=== PATIENT | female | born 1930 | race Caucasian/White ===

== ENCOUNTER 2020-05-24 20:14 | Inpatient (IN) | payer MEDICARE, BC ==
[2020-05-24 20:30] LABS: Glucose,Whole Blood 234 mg/dL (75-99)
--- NOTE | 2020-05-24 20:33 | ED ---
General Adult HPI - General Stated complaint: Confusion Time Seen by Provider: 05/24/20 20:16 - History of Present Illness Initial comments: Dictation was produced using [employer] dictation software. please excuse any grammatical, word or spelling errors. 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 She has been at [facility] for almost 3-4 days. Today she was found to be confused and was caught drinking from the spell of a hand radio engineering teacher bottle. According to EMS she has been confused the whole time she's been at [facility]. Her normal baseline mental status is usually interactive with meaningful conversation. Patient is a poor historian at this time. Patient complains of bilateral calf pain. She is allegedly at [facility] for hypokalemia. Patient denies any dyspnea. The ROS documented in this emergency department record has been reviewed and confirmed by me. Those systems with pertinent positive or negative responses h ave been documented in the HPI. All other systems are other negative and/or noncontributory. PHYSICAL EXAM: General Impression: Alert and oriented x2/4, not in acute distress HEENT: Normocephalic atraumatic, extra-ocular movements intact, pupils equal and reactive to light bilaterally, mucous membranes moist. 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 Vital signs upon arrival are within acceptable limits. patient has any medical complaints patient denies chest pain or shortness of breath. However, she is not a reliable historian. [facility] transfer documentation was reviewed. Patient is a DO NOT RESUSCITATE. Reports that patient is bed confined. Medical problems list shows congestive heart failure, hypertension, dysphasia, hypothyroidism, dyslipidemia. She also has long-term use of anticoagulants. Medications reviewed. Patient takes digoxin, statin, aspirin, vitamin D, isosorbide, levothyroxine, Norvasc, and requests. Laboratory evaluation obtained. Leukocytosis of 26.5 hemoglobin 9.4. There is no old labs in the EMR for comparison. No osmolar gap. No anion gap Coag panel is unremarkable. Metabolic panel shows sodium 132, potassium of 5.6. BUN of 69 with a creatinine of 0.95. Glucose of 144. AST 30, troponin of 0.052. Patient has history of CHF. This is likely troponin leak. Urinalysis shows 182 white blood cells. Computed tomography scan of the brain and x-ray shows no acute processes. This point there is concerns of UTI with mental status changes. She is not tachypneic or febrile or showing any other signs of organ dysfunction. Patient be admitted for altered mental status. She is given ceftriaxone. Patient will be admitted to Dr. Santos service. EKG interpretation: Ventricular rate 107, A. fib with RVR, QRS 146, QTC 448. No CO prolongation, no QTC prolongation, no ST or T-wave changes noted. No old EKG for comparison. Right bundle branch block - Related Data Home Medications Medication Instructions Recorded Confirmed Acetaminophen Tab [Tylenol Tab] 1,000 mg PO Q4H PRN 05/24/20 05/24/20 Acetaminophen-Codeine 300-30mg 1 tab PO TID PRN 05/24/20 05/24/20 [Tylenol w/codeine #3] Apixaban [Eliquis] 2.5 mg PO BID@899,209905/24/20 05/24/20 Aspirin 81 mg PO DAILY@89905/24/20 05/24/20 Atorvastatin [Lipitor] 10 mg PO HS@209905/24/20 05/24/20 Calcium Carbonate/Vitamin D3 1 tab PO BID@899,209905/24/20 05/24/20 [Calcium 600-D3 20Mcg(800 Unit)] Cholecalciferol [Vitamin D3 (25 1,000 unit PO DAILY@89905/24/20 05/24/20 Mcg = 1000 Iu)] Digoxin [Lanoxin] 125 mcg PO DAILY@59905/24/20 05/24/20 Docusate [Colace] 100 mg PO BID PRN 05/24/20 05/24/20 Fish Oil(Unknown Dose) 1 cap PO BID@0900,209905/24/20 05/24/20 Furosemide [Lasix] 40 mg PO BID@0600,1400 05/24/20 05/24/20 Glucosamine-Chondr 500-400Mg 1 tab PO BID@0900,209905/24/20 05/24/20 Iron Polysaccharide Complex 150 mg PO DAILY@1700 05/24/20 05/24/20 [Polysaccharide Iron] Isosorbide Mononitrate ER [Imdur] 30 mg PO DAILY@89905/24/20 05/24/20 Lactobacillus Rhamnosus GG 1 cap PO DAILY@89905/24/20 05/24/20 [Culturelle] Lactose-Reduced Food [Ensure Plus] 120 ml PO TID@0900,1300,209905/24/20 05/24/20 Levothyroxine Sodium [Synthroid] 50 mcg PO DAILY@59905/24/20 05/24/20 Melatonin 5 mg PO HS@209905/24/20 05/24/20 Metoprolol Tartrate [Lopressor] 50 mg PO BID@0900,209905/24/20 05/24/20 Multivitamins, Thera [Multivitamin 1 tab PO DAILY@89905/24/20 05/24/20 (formulary)] Nitroglycerin Sl Tabs [Nitrostat] 0.4 mg SL Q5M PRN 05/24/20 05/24/20 Potassium Chloride ER [K-Dur 20] 40 meq PO BID@0900,209905/24/20 05/24/20 amLODIPine [Norvasc] 5 mg PO DAILY@89905/24/20 05/24/20 Allergies Allergy/AdvReac Type Severity Reaction Status Date / Time cefaclor [From Ceclor] Allergy Unknown Verified 05/24/20 21:35 Review of Systems ROS Statement: Those systems with pertinent positive or pertinent negative responses have been documented in the HPI. ROS Other: All systems not noted in ROS Statement are negative. Course Vital Signs 05/24/20 20:27 Temperature 98.4 F Pulse Rate 98 Respiratory 16 Rate Blood Pressure 112/61 O2 Sat by Pulse 96 Oximetry Medical Decision Making - Lab Data Result diagrams: 05/24/20 20:41 05/24/20 20:41 Lab Results 05/24/20 05/24/20 05/24/20 Range/Units 20:29 20:41 20:41 WBC 26.5 H (3.8-10.6) k/uL RBC 3.12 L (3.80-5.40) m/uL Hgb 9.4 L (11.4-16.0) gm/dL Hct 29.1 L (34.0-46.0) % MCV 93.1 (80.0-100.0) fL MCH 30.0 (25.0-35.0) pg MCHC 32.2 (31.0-37.0) g/dL RDW 13.8 (11.5-15.5) % Plt Count 377 (150-450) k/uL PT 10.4 (9.0-12.0) sec INR 1.0 (<1.2) APTT 26.8 (22.0-30.0) sec Sodium (137-145) mmol/L Potassium (3.5-5.1) mmol/L Chloride (98-107) mmol/L Carbon Dioxide (22-30) mmol/L Anion Gap mmol/L BUN (7-17) mg/dL Creatinine (0.52-1.04) mg/dL Est GFR (CKD-EPI)AfAm (>60 ml/min/1.73 sqM) Est GFR (CKD-EPI)NonAf (>60 ml/min/1.73 sqM) Glucose (74-99) mg/dL POC Glucose (mg/dL) 234 H (75-99) mg/dL POC Glu Template Clerk ID Haydee Tong Osmolality (280-301) mosm/kg Plasma Lactic Acid Julian (0.7-2.0) mmol/L Calcium (8.4-10.2) mg/dL Magnesium (1.6-2.3) mg/dL Total Bilirubin (0.2-1.3) mg/dL AST (14-36) U/L ALT (4-34) U/L Alkaline Phosphatase (38-126) U/L Troponin I (0.000-0.034) ng/mL Total Protein (6.3-8.2) g/dL Albumin (3.5-5.0) g/dL Urine Color Urine Appearance (Clear) Urine pH (5.0-8.0) Ur Specific Fleming (1.001-1.035) Urine Protein (Negative) Urine Glucose (UA) (Negative) Urine Ketones (Negative) Urine Blood (Negative) Urine Nitrite (Negative) Urine Bilirubin (Negative) Urine Urobilinogen (<2.0) mg/dL Ur Leukocyte Esterase (Negative) Urine RBC (0-5) /hpf Urine WBC (0-5) /hpf Urine WBC Clumps (None) /hpf Urine Bacteria (None) /hpf 05/24/20 05/24/20 05/24/20 Range/Units 20:41 20:41 20:41 WBC (3.8-10.6) k/uL RBC (3.80-5.40) m/uL Hgb (11.4-16.0) gm/dL Hct (34.0-46.0) % MCV (80.0-100.0) fL MCH (25.0-35.0) pg MCHC (31.0-37.0) g/dL RDW (11.5-15.5) % Plt Count (150-450) k/uL PT (9.0-12.0) sec INR (<1.2) APTT (22.0-30.0) sec Sodium 132 L (137-145) mmol/L Potassium 5.6 H (3.5-5.1) mmol/L Chloride 93 L (98-107) mmol/L Carbon Dioxide 27 (22-30) mmol/L Anion Gap 12 mmol/L BUN 69 H (7-17) mg/dL Creatinine 0.95 (0.52-1.04) mg/dL Est GFR (CKD-EPI)AfAm 63 (>60 ml/min/1.73 sqM) Est GFR (CKD-EPI)NonAf 54 (>60 ml/min/1.73 sqM) Glucose 144 H (74-99) mg/dL POC Glucose (mg/dL) (75-99) mg/dL POC Glu Template Clerk ID Osmolality 298 (280-301) mosm/kg Plasma Lactic Acid Julian 1.2 (0.7-2.0) mmol/L Calcium 9.4 (8.4-10.2) mg/dL Magnesium 2.0 (1.6-2.3) mg/dL Total Bilirubin 0.5 (0.2-1.3) mg/dL AST 38 H (14-36) U/L ALT 21 (4-34) U/L Alkaline Phosphatase 123 (38-126) U/L Troponin I (0.000-0.034) ng/mL Total Protein 7.4 (6.3-8.2) g/dL Albumin 3.5 (3.5-5.0) g/dL Urine Color Light Yellow Urine Appearance Cloudy H (Clear) Urine pH 7.0 (5.0-8.0) Ur Specific Fleming 1.009 (1.001-1.035) Urine Protein 1+ H (Negative) Urine Glucose (UA) Negative (Negative) Urine Ketones Negative (Negative) Urine Blood Small H (Negative) Urine Nitrite Negative (Negative) Urine Bilirubin Negative (Negative) Urine Urobilinogen <2.0 (<2.0) mg/dL Ur Leukocyte Esterase Large H (Negative) Urine RBC 1 (0-5) /hpf Urine WBC >182 H (0-5) /hpf Urine WBC Clumps Many H (None) /hpf Urine Bacteria Moderate H (None) /hpf 05/24/20 Range/Units 20:41 WBC (3.8-10.6) k/uL RBC (3.80-5.40) m/uL Hgb (11.4-16.0) gm/dL Hct (34.0-46.0) % MCV (80.0-100.0) fL MCH (25.0-35.0) pg MCHC (31.0-37.0) g/dL RDW (11.5-15.5) % Plt Count (150-450) k/uL PT (9.0-12.0) sec INR (<1.2) APTT (22.0-30.0) sec Sodium (137-145) mmol/L Potassium (3.5-5.1) mmol/L Chloride (98-107) mmol/L Carbon Dioxide (22-30) mmol/L Anion Gap mmol/L BUN (7-17) mg/dL Creatinine (0.52-1.04) mg/dL Est GFR (CKD-EPI)AfAm (>60 ml/min/1.73 sqM) Est GFR (CKD-EPI)NonAf (>60 ml/min/1.73 sqM) Glucose (74-99) mg/dL POC Glucose (mg/dL) (75-99) mg/dL POC Glu Template Clerk ID Osmolality (280-301) mosm/kg Plasma Lactic Acid Julian (0.7-2.0) mmol/L Calcium (8.4-10.2) mg/dL Magnesium (1.6-2.3) mg/dL Total Bilirubin (0.2-1.3) mg/dL AST (14-36) U/L ALT (4-34) U/L Alkaline Phosphatase (38-126) U/L Troponin I 0.052 H* (0.000-0.034) ng/mL Total Protein (6.3-8.2) g/dL Albumin (3.5-5.0) g/dL Urine Color Urine Appearance (Clear) Urine pH (5.0-8.0) Ur Specific Fleming (1.001-1.035) Urine Protein (Negative) Urine Glucose (UA) (Negative) Urine Ketones (Negative) Urine Blood (Negative) Urine Nitrite (Negative) Urine Bilirubin (Negative) Urine Urobilinogen (<2.0) mg/dL Ur Leukocyte Esterase (Negative) Urine RBC (0-5) /hpf Urine WBC (0-5) /hpf Urine WBC Clumps (None) /hpf Urine Bacteria (None) /hpf Disposition Clinical Impression: Altered mental status Disposition: ADMITTED IP TO THIS [facility] Condition: Fair Referrals: Suresh Hardy MD [Primary Care Provider] - 1-2 days Decision Time: 21:51
[2020-05-24 21:12] LABS: Albumin 3.5 g/dL (3.5-5.0); Calcium 9.4 mg/dL (8.4-10.2); Potassium 5.6 mmol/L (3.5-5.1); Total Bilirubin 0.5 mg/dL (0.2-1.3); Total Protein 7.4 g/dL (6.3-8.2)
[2020-05-24] MEDS ORDERED: SODIUM CHLORIDE 0.9% 500 ML 500 ML IV STA (21:14)
[2020-05-24 21:17] LABS: Appearance,Urine Cloudy (Clear); Bacteria,Urine Moderate /hpf; Bilirubin,Urine Negative (Negative); Blood,Urine Small (Negative); Color,Urine Light Yellow; Glucose,Urine (UA) Negative (Negative); HCT 29.1 % (34.0-46.0); HGB 9.4 gm/dL (11.4-16.0); Ketones,Urine Negative (Negative); Leukocyte Esterase,Urine Large (Negative); MCHC 32.2 g/dL (31.0-37.0); MCV 93.1 fL (80.0-100.0); Mean Platelet Volume 7.2; Nitrite,Urine Negative (Negative); Platelet Count 377 k/uL (150-450); Protein,Urine 1+ (Negative); RBC 3.12 m/uL (3.80-5.40); RBC,Urine 1 /hpf (0-5); RDW 13.8 % (11.5-15.5); Specific Gravity,Urine 1.009 (1.001-1.035); Urobilinogen,Urine <2.0 mg/dL (<2.0); WBC 26.5 k/uL (3.8-10.6); WBC,Urine >182 /hpf (0-5)
--- NOTE | 2020-05-24 21:25 | XR ---
EXAMINATION TYPE: XR chest 1V DATE OF EXAM: 05/24/2020 COMPARISON: NONE HISTORY: Altered mental status TECHNIQUE: Single view FINDINGS: Heart is enlarged. There is pulmonary vascular congestion. There are sternal wires. There i s significant arthritic disease in the right shoulder joint. There are chest leads. There is slight b lunting of the costophrenic angles. IMPRESSION: There is evidence for some congestive heart failure. Pulmonary interstitial fibrosis.
--- NOTE | 2020-05-24 21:29 | CT ---
EXAMINATION TYPE: CT brain wo con DATE OF EXAM: 05/24/2020 COMPARISON: HISTORY: Altered mental status. CT DLP: 1217.4 mGycm Automated exposure control for dose reduction was used. Exam somewhat limited by artifact. There is cerebral cortical atrophy. There is no mass effect nor mi dline shift. I see no definite intracranial hemorrhage. There is some hyperostosis frontalis. Skull b ase appears intact. IMPRESSION: Cerebral atrophy. Limited exam. No acute intracranial abnormality. Artifact seen involving both front al lobes which are not well evaluated.
[2020-05-24 21:32] LABS: Partial Thromboplastin Time 26.8 sec (22.0-30.0); Prothrombin Time 10.4 sec (9.0-12.0)
[2020-05-24 21:55] LABS: Band Neutrophils % 4 %; Monocytes # (M) 1.33 k/uL (0-1.0); Neutrophils % (M) 88 %; Nucleated Red Blood Cells 0 /100 WBC (0-0); Total Cells Counted 200
[2020-05-24] MEDS ORDERED: cefTRIAXone IN SWFI 1,000 MG/10 ML SYRINGE IVP ONE (22:00)
[2020-05-24] MEDS ORDERED: NALOXONE 0.4 MG/ML 1 ML VIAL IV PRN (22:37)
[2020-05-24] MEDS ORDERED: SODIUM CHLORIDE 0.9% 1,000 ML IV SCH (22:45)
[2020-05-24] MEDS: ACETAMINOPHEN TAB 325 MG TAB PO PRN (23:30)
[2020-05-25] MEDS: FUROSEMIDE 40 MG TAB PO SCH ×2 (06:07→12:57)
[2020-05-25] MEDS: DIGOXIN 125 MCG TAB PO SCH (06:07)
[2020-05-25 06:11] LABS: Glucose,Whole Blood 112 mg/dL (75-99)
[2020-05-25 06:50] LABS: HCT 29.3 % (34.0-46.0); HGB 9.3 gm/dL (11.4-16.0); MCH 29.8 pg (25.0-35.0); MCHC 31.8 g/dL (31.0-37.0); MCV 93.8 fL (80.0-100.0); Mean Platelet Volume 7.4; Platelet Count 405 k/uL (150-450); RBC 3.13 m/uL (3.80-5.40); WBC 28.5 k/uL (3.8-10.6)
[2020-05-25 07:02] LABS: Calcium 9.2 mg/dL (8.4-10.2); Potassium 5.6 mmol/L (3.5-5.1)
[2020-05-25] MEDS: METOPROLOL TARTRATE 50 MG TAB PO SCH ×2 (09:11→20:47)
[2020-05-25] MEDS: APIXABAN 2.5 MG TABLET PO SCH ×2 (09:11→20:47)
[2020-05-25] MEDS: ISOSORBIDE MONONITRATE ER 30 MG TAB.ER.24H PO SCH (09:11)
[2020-05-25] MEDS ORDERED: Acetaminophen-Codeine 300-30mg TAB PO PRN (10:51)
[2020-05-25] MEDS ORDERED: NITROGLYCERIN SL TABS 0.4 MG TAB SUBLINGUAL PRN (10:51)
[2020-05-25] MEDS ORDERED: SODIUM POLYSTYRENE SULFONATE 15 GM/60 ML BOTTLE PO STA (10:52)
[2020-05-25 11:56] VITALS: BMI 17.6
[2020-05-25] MEDS: amLODIPine 5 MG TAB PO SCH (12:57)
[2020-05-25] MEDS: LEVOTHYROXINE 50 MCG TAB PO SCH (12:57)
[2020-05-25] MEDS: ASPIRIN 81 MG PO SCH (12:57)
[2020-05-25] MEDS ORDERED: NON FORMULARY DRUG (Lactose-Reduced Food [Ensure Plus] 120 ML) PO SCH (13:00)
--- NOTE | 2020-05-25 17:44 | P.HPIM ---
History of Present Illness H&P Date: 05/25/20 Chief Complaint: Change in mental status History of presenting complaint: This is a 89-year-old patient was a resident of [facility] being followed by Dr. Hardy. As per the EMS report patient had been somewhat confused. Staff and found the patient and drinking hand wash mortal and about how.. She had the poutt to her mouth. Poison control was contacted. Patient was watched clinically. No choking or shortness of breath. Patient is brought into the ER. Chronic stable medical conditions include CHF, hypertension, hypothyroid, hyperlipidemia, patient nonambulatory. This morning patient had about 25% of her breakfast. Denies any pain. No shortness of breath. Review of systems: GEN.: Tired EYES: None HEENT: Decreased hearing NECK: None RESPIRATORY: None CARDIOVASCULAR: None GASTROINTESTINAL: None GENITOURINARY: None MUSCULOSKELETAL: Joint pains muscle wasting LYMPHATICS: None HEMATOLOGICAL: None PSYCHIATRY: Forgetful NEUROLOGICAL: None Past medical history to include: Atrial fibrillation, CHF, hypertension, hypothyroid, hyperlipidemia, mitral valve replacement Social history: Ex-smoker, currently at [facility] Family history: Patient does not remember Physical examination: VITAL SIGNS: 98.4, 98, 16, 112/61, 96% on room air GENERAL: BMI 70.7, sitting up, loss of subcutaneous fat and wasting of muscles. EYES: Pupils equal. Conjunctiva normal. HEENT: External appearance of nose and ears normal, oral cavity grossly normal. NECK: JVD not raised; masses not palpable. HEART: Heart sounds irregular; no edema. LUNGS: Respiratory rate normal; clear to auscultation. ABDOMEN: Soft, nontender, liver spleen not palpable, no masses palpable. PSYCH: Able tonsil simple questionsl. MUSCULAR skeletal: Evidence of OA, loss of subcu tinnitus fat, muscle wasting, bony prominences NEUROLOGICAL: Cranial nerves grossly intact; no facial asymmetry, power and sensation grossly intact. LYMPHATICS: No lymph nodes palpable in the axilla and neck INVESTIGATIONS, reviewed in the clinical context: White count 26.5 hemoglobin 9.4 platelets 377 potassium 5.6 sodium 1:30 creatinine 0.95 bun 69 Troponin I 0.052 UA positive for leukoesterase, WBC EKG tracing personally reviewed by me-atrial fibrillation rate of 107, right bundle branch block pattern, ST segment changes Chest x-ray film personally reviewed by me-coronary jermaine with venous pr ominence and interstitial prominence Assessment: -Acute UTI with cystitis, POA -Persistent atrial fibrillation, rate uncontrolled chronically on eliquis -Primary osteoarthritis -Moderate cognitive impairment possibly from late-onset exam his dementia -Acute delirium on presentation likely from infection -Chronic congestive heart failure EF not known -Essential hypertension -Hypothyroidism, rule out over replacement -History of mitral valve replacement -Normocytic anemia cause unknown -Hyperkalemia seconded to potassium replacement -Clinical dehydration Plan: Patient be continued IV ceftriaxone. Gentle hydration. Current vent dose of Lasix. Stop potassium supplementation. Sendoff B12, folate, iron studies. Check thyroid status. Care was discussed with the patient. Past Medical History Past Medical History: Atrial Fibrillation, Heart Failure, Hypertension, Thyroid Disorder Additional Past Medical History / Comment(s): dyslipidemia. pt unable to anser questions about past medical history at this time. history in paperwork from [facility] History of Any Multi-Drug Resistant Organisms: Unobtainable Past Surgical History: Cardiac Valve Replacement Additional Past Surgical History / Comment(s): mitral valve replacement. Past Anesthesia/Blood Transfusion Reactions: Unable to Obtain Past Psychological History: Unable to Obtain Smoking Status: Former smoker Past Alcohol Use History: None Reported Past Drug Use History: None Reported Medications and Allergies Home Medications Medication Instructions Recorded Confirmed Type Acetaminophen Tab [Tylenol Tab] 1,000 mg PO Q4H PRN 05/24/20 05/24/20 History Acetaminophen-Codeine 300-30mg 1 tab PO TID PRN 05/24/20 05/24/20 History [Tylenol w/codeine #3] Apixaban [Eliquis] 2.5 mg PO BID@899,209905/24/20 05/24/20 History Aspirin 81 mg PO DAILY@89905/24/20 05/24/20 History Atorvastatin [Lipitor] 10 mg PO HS@209905/24/20 05/24/20 History Calcium Carbonate/Vitamin D3 1 tab PO BID@899,209905/24/20 05/24/20 History [Calcium 600-D3 20Mcg(800 Unit)] Cholecalciferol [Vitamin D3 (25 1,000 unit PO DAILY@89905/24/20 05/24/20 History Mcg = 1000 Iu)] Digoxin [Lanoxin] 125 mcg PO DAILY@59905/24/20 05/24/20 History Docusate [Colace] 100 mg PO BID PRN 05/24/20 05/24/20 History Fish Oil(Unknown Dose) 1 cap PO BID@09,209905/24/20 05/24/20 History Furosemide [Lasix] 40 mg PO BID@0600,1400 05/24/20 05/24/20 History Glucosamine-Chondr 500-400Mg 1 tab PO BID@0900,209905/24/20 05/24/20 History Iron Polysaccharide Complex 150 mg PO DAILY@169905/24/20 05/24/20 History [Polysaccharide Iron] Isosorbide Mononitrate ER [Imdur] 30 mg PO DAILY@89905/24/20 05/24/20 History Lactobacillus Rhamnosus GG 1 cap PO DAILY@89905/24/20 05/24/20 History [Culturelle] Lactose-Reduced Food [Ensure Plus] 120 ml PO TID@0900,1300,209905/24/20 05/24/20 History Levothyroxine Sodium [Synthroid] 50 mcg PO DAILY@59905/24/20 05/24/20 History Melatonin 5 mg PO HS@209905/24/20 05/24/20 History Metoprolol Tartrate [Lopressor] 50 mg PO BID@0900,209905/24/20 05/24/20 History Multivitamins, Thera [Multivitamin 1 tab PO DAILY@89905/24/20 05/24/20 History (formulary)] Nitroglycerin Sl Tabs [Nitrostat] 0.4 mg SL Q5M PRN 05/24/20 05/24/20 History Potassium Chloride ER [K-Dur 20] 40 meq PO BID@0900,209905/24/20 05/24/20 History amLODIPine [Norvasc] 5 mg PO DAILY@89905/24/20 05/24/20 History Allergies Allergy/AdvReac Type Severity Reaction Status Date / Time [facility] Allergy Unknown Verified 05/24/20 21:35 Physical Exam Vitals: Vital Signs Temp Pulse Pulse Resp BP BP Pulse Ox 05/25/20 09:14 98.9 F 106 H 18 122/57 90 L 05/25/20 03:55 97 18 05/25/20 03:54 98.2 F 97 18 107/61 95 05/25/20 00:00 98.1 F 94 16 116/52 93 L 05/24/20 23:37 98.1 F 94 18 116/52 93 L 05/24/20 22:23 98 18 101/51 96 05/24/20 20:27 98.4 F 98 16 112/61 96 Intake and Output 05/24/20 05/25/20 05/25/20 22:59 06:59 14:59 Intake Total 120 Balance 120 Intake: Oral 120 Other: Voiding Method Diaper Diaper Incontinent Incontinent Weight 45.359 kg 45.359 kg Results CBC & Chem 7: 05/25/20 06:09 05/25/20 06:09 Labs: Abnormal Lab Results - Last 24 Hours (Table) 05/24/20 05/24/20 05/24/20 Range/Units 20:29 20:41 20:41 WBC 26.5 H (3.8-10.6) k/uL RBC 3.12 L (3.80-5.40) m/uL Hgb 9.4 L (11.4-16.0) gm/dL Hct 29.1 L (34.0-46.0) % Neutrophils # (Manual) 24.30 H (1.3-7.7) k/uL Lymphocytes # (Manual) 0.80 L (1.0-4.8) k/uL Monocytes # (Manual) 1.33 H (0-1.0) k/uL Sodium (137-145) mmol/L Potassium (3.5-5.1) mmol/L Chloride (98-107) mmol/L BUN (7-17) mg/dL Glucose (74-99) mg/dL POC Glucose (mg/dL) 234 H (75-99) mg/dL AST (14-36) U/L Troponin I (0.000-0.034) ng/mL Urine Appearance Cloudy H (Clear) Urine Protein 1+ H (Negative) Urine Blood Small H (Negative) Ur Leukocyte Esterase Large H (Negative) Urine WBC >182 H (0-5) /hpf Urine WBC Clumps Many H (None) /hpf Urine Bacteria Moderate H (None) /hpf 05/24/20 05/24/20 05/25/20 Range/Units 20:41 20:41 06:05 WBC (3.8-10.6) k/uL RBC (3.80-5.40) m/uL Hgb (11.4-16.0) gm/dL Hct (34.0-46.0) % Neutrophils # (Manual) (1.3-7.7) k/uL Lymphocytes # (Manual) (1.0-4.8) k/uL Monocytes # (Manual) (0-1.0) k/uL Sodium 132 L (137-145) mmol/L Potassium 5.6 H (3.5-5.1) mmol/L Chloride 93 L (98-107) mmol/L BUN 69 H (7-17) mg/dL Glucose 144 H (74-99) mg/dL POC Glucose (mg/dL) 112 H (75-99) mg/dL AST 38 H (14-36) U/L Troponin I 0.052 H* (0.000-0.034) ng/mL Urine Appearance (Clear) Urine Protein (Negative) Urine Blood (Negative) Ur Leukocyte Esterase (Negative) Urine WBC (0-5) /hpf Urine WBC Clumps (None) /hpf Urine Bacteria (None) /hpf 05/25/20 05/25/20 Range/Units 06:09 06:09 WBC 28.5 H (3.8-10.6) k/uL RBC 3.13 L (3.80-5.40) m/uL Hgb 9.3 L (11.4-16.0) gm/dL Hct 29.3 L (34.0-46.0) % Neutrophils # (Manual) (1.3-7.7) k/uL Lymphocytes # (Manual) (1.0-4.8) k/uL Monocytes # (Manual) (0-1.0) k/uL Sodium 130 L (137-145) mmol/L Potassium 5.6 H (3.5-5.1) mmol/L Chloride 91 L (98-107) mmol/L BUN 64 H (7-17) mg/dL Glucose (74-99) mg/dL POC Glucose (mg/dL) (75-99) mg/dL AST (14-36) U/L Troponin I (0.000-0.034) ng/mL Urine Appearance (Clear) Urine Protein (Negative) Urine Blood (Negative) Ur Leukocyte Esterase (Negative) Urine WBC (0-5) /hpf Urine WBC Clumps (None) /hpf Urine Bacteria (None) /hpf Microbiology - Last 24 Hours (Table) 05/24/20 20:41 Urine Culture - Preliminary Urine,Catheterized Thrombosis Risk Factor Assmnt - Choose All That Apply Any of the Below Risk Factors Present?: No Other Risk Factors: Yes Each Risk Factor Represents 3 Points: Age 75 years or older Other congenital or acquired thrombophilia - If yes, enter type in comment: No Thrombosis Risk Factor Assessment Total Risk Factor Score: 3 Thrombosis Risk Factor Assessment Level: Moderate Risk
[2020-05-25] MEDS: SODIUM CHLORIDE 0.9% 1,000 ML IV SCH (18:00)
[2020-05-25] MEDS: ATORVASTATIN 10 MG TAB PO SCH (20:47)
[2020-05-25] MEDS: MELATONIN 5 MG TABLET PO SCH (20:47)
[2020-05-26] MEDS: DIGOXIN 125 MCG TAB PO SCH (05:37)
[2020-05-26] MEDS: LEVOTHYROXINE 50 MCG TAB PO SCH (05:37)
[2020-05-26] MEDS: SODIUM CHLORIDE 0.9% 1,000 ML IV SCH ×2 (05:39→19:22)
[2020-05-26 07:23] LABS: Calcium 8.7 mg/dL (8.4-10.2); Potassium 3.8 mmol/L (3.5-5.1)
[2020-05-26] MEDS: ISOSORBIDE MONONITRATE ER 30 MG TAB.ER.24H PO SCH (08:20)
[2020-05-26] MEDS: METOPROLOL TARTRATE 50 MG TAB PO SCH ×2 (08:20→19:58)
[2020-05-26] MEDS: ACETAMINOPHEN TAB 325 MG TAB PO PRN ×2 (08:20→19:21)
[2020-05-26] MEDS: ASPIRIN 81 MG PO SCH (08:21)
[2020-05-26] MEDS: amLODIPine 5 MG TAB PO SCH (08:21)
[2020-05-26] MEDS: APIXABAN 2.5 MG TABLET PO SCH ×2 (08:21→19:58)
[2020-05-26] MEDS ORDERED: FUROSEMIDE 40 MG TAB PO SCH (09:00)
[2020-05-26 11:02] LABS: Ferritin 236.4 ng/mL (10.0-291.0)
[2020-05-26 11:03] LABS: % Iron Saturation 4.2 (12.00-45.00)
[2020-05-26 12:28] LABS: Folate, Serum 22.5 ng/mL
[2020-05-26] MEDS: MELATONIN 5 MG TABLET PO SCH (19:58)
[2020-05-26] MEDS: ATORVASTATIN 10 MG TAB PO SCH (19:58)
--- NOTE | 2020-05-26 23:14 | P.PN ---
Progress Note - Text Progress Note Date: 05/26/20 Chief Complaint: Change in mental status History of presenting complaint: This is a 89-year-old patient was a resident of [facility] being followed by Dr. Hardy. As per the EMS report patient had been somewhat confused. Staff and found the patient and drinking hand wash mortal and about how.. She had the poutt to her mouth. Poison control was contacted. Patient was watched clinically. No choking or shortness of breath. Patient is brought into the ER. Chronic stable medical conditions include CHF, hypertension, hypothyroid, hyperlipidemia, patient nonambulatory. This morning patient had about 25% of her breakfast. Denies any pain. No shortness of breath. admitted with acute UTI with cystitis, A. fib uncontrolled. Started on IV ceftriaxone. Today-looking much better sitting up in bed. Communicating. Comfortable.eating about 50% of her meals. Review of systems: Was done for constitutional, cardiovascular, GI, pulmonary. relevant finding as above Active Medications Acetaminophen (Tylenol Tab) 650 mg PO Q6HR PRN PRN Reason: Mild Pain or Fever > 100.5 Last Admin: 05/26/20 19:21 Dose: 650 mg Documented by: Acetaminophen/Codeine Phosphate (Tylenol #3) 1 each PO TID PRN PRN Reason: Pain Amlodipine Besylate (Norvasc) 5 mg PO DAILY@0900 [facility] Last Admin: 05/26/20 08:21 Dose: 5 mg Documented by: Apixaban (Eliquis) 2.5 mg PO BID@0900,2100 [facility] Last Admin: 05/26/20 19:58 Dose: 2.5 mg Documented by: Aspirin (Aspirin) 81 mg PO DAILY@0900 [facility] Last Admin: 05/26/20 08:21 Dose: 81 mg Documented by: Atorvastatin Calcium (Lipitor) 10 mg PO HS@2100 [facility] Last Admin: 05/26/20 19:58 Dose: 10 mg Documented by: Digoxin (Lanoxin) 125 mcg PO DAILY@0600 [facility] Last Admin: 05/26/20 05:37 Dose: 125 mcg Documented by: Furosemide (Lasix) 40 mg PO DAILY [facility] Last Admin: 05/26/20 08:21 Dose: 40 mg Documented by: Ceftriaxone Sodium 1 gm/ (Sodium Chloride) 50 mls @ 100 mls/hr IVPB Q24H [facility] Last Admin: 05/26/20 19:58 Dose: 100 mls/hr Documented by: Sodium Chloride (Saline 0.9%) 1,000 mls @ 75 mls/hr IV .[id number] [facility] Last Admin: 05/26/20 19:22 Dose: 75 mls/hr Documented by: Isosorbide Mononitrate (Imdur) 30 mg PO DAILY@0900 [facility] Last Admin: 05/26/20 08:20 Dose: 30 mg Documented by: Levothyroxine Sodium (Synthroid) 50 mcg PO DAILY@0600 [facility] Last Admin: 05/26/20 05:37 Dose: 50 mcg Documented by: Melatonin (Melatonin) 5 mg PO HS@2100 [facility] Last Admin: 05/26/20 19:58 Dose: 5 mg Documented by: Metoprolol Tartrate (Lopressor) 50 mg PO BID@0900,2100 [facility] Last Admin: 05/26/20 19:58 Dose: 50 mg Documented by: Naloxone HCl (Narcan) 0.2 mg IV Q2M PRN PRN Reason: Opioid Reversal Nitroglycerin (Nitrostat) 0.4 mg SUBLINGUAL Q5M PRN PRN Reason: Chest Pain Physical examination: VITAL SIGNS:97.5, 70, 14, 111/58, 93% on room air GENERAL: sitting up, loss of subcutaneous fat and wasting of muscles.comfortable EYES: Pupils equal. Conjunctiva normal. HEENT: External appearance of nose and ears normal, oral cavity grossly normal. NECK: JVD not raised; masses not palpable. HEART: Heart sounds irregular; no edema. LUNGS: Respiratory rate normal; clear to auscultation. ABDOMEN: Soft, nontender, liver spleen not palpable, no masses palpable. PSYCH: able to carry of a simple conversation MUSCULAR skeletal: Evidence of OA, loss of subcu tinnitus fat, muscle wasting, bony prominences INVESTIGATIONS, reviewed in the clinical context: Potassium 3.8 creatinine 0.86 urine and blood culture both grew E. coli I 11 TIBC 262 ferritin 4.20, B12/folate/TSH all normal Previous testing White count 26.5 hemoglobin 9.4 platelets 377 potassium 5.6 sodium 1:30 creatinine 0.95 bun 69 Troponin I 0.052 UA positive for leukoesterase, WBC EKG tracing personally reviewed by me-atrial fibrillation rate of 107, right bundle branch block pattern, ST segment changes Chest x-ray film personally reviewed by me-coronary megaly with venous prominence and interstitial prominence Assessment: -Acute UTI with cystitis, POA -Persistent atrial fibrillation, rate uncontrolled chronically on eliquis -Primary osteoarthritis -Moderate cognitive impairment possibly from late-onset exam his dementia -Acute delirium on presentation likely from infection -Chronic congestive heart failure EF not known -Essential hypertension -Hypothyroidism, rule out over replacement -History of mitral valve replacement -Normocytic anemia -iron deficient -Hyperkalemia seconded to potassium replacement -Clinical dehydration -Troponin leak due to hemodynamic mismatch. No clinical evidence of acute coronary syndrome Plan: continue withIV ceftriaxone. give IV Ferrlecit. Other medications to continue.
[2020-05-26] MEDS: SODIUM FERRIC GLUCONAT-SUCROSE 125 MG in SODIUM CHLORIDE 0.9% 100 ML IVPB SCH (23:47)
[2020-05-27] MEDS: DIGOXIN 125 MCG TAB PO SCH (05:33)
[2020-05-27] MEDS: LEVOTHYROXINE 50 MCG TAB PO SCH (05:33)
[2020-05-27] MEDS: ISOSORBIDE MONONITRATE ER 30 MG TAB.ER.24H PO SCH (08:09)
[2020-05-27] MEDS: amLODIPine 5 MG TAB PO SCH (08:09)
[2020-05-27] MEDS: ASPIRIN 81 MG PO SCH (08:09)
[2020-05-27] MEDS: APIXABAN 2.5 MG TABLET PO SCH ×2 (08:09→19:51)
[2020-05-27] MEDS: METOPROLOL TARTRATE 50 MG TAB PO SCH ×2 (08:09→19:50)
[2020-05-27] MEDS: ACETAMINOPHEN TAB 325 MG TAB PO PRN ×2 (08:17→20:20)
[2020-05-27] MEDS: SODIUM FERRIC GLUCONAT-SUCROSE 125 MG in SODIUM CHLORIDE 0.9% 100 ML IVPB SCH (09:14)
[2020-05-27] MEDS: SODIUM CHLORIDE 0.9% 1,000 ML IV SCH (09:14)
--- NOTE | 2020-05-27 10:14 | P.CNNES ---
History of Present Illness Consult date: 05/27/20 Requesting physician: Cassius Marshall Reason for Consult: altered mental status History of Present Illness: This is an 89-year-old left-handedfemale with medical history of atrial fibrillation on Eliquis, significant osteoarthritis, congestive heart failure, hypertension, hypothyroidism, hyperlipidemia who presented to the emergency department on 05/24/2020 for altered mental status. Patient is a resident of [facility] for the past 3-4 days prior to presentation. She was caught drinking from hand ar manager bottle and other report that stated that she was been drinking from from hand wash. According to reports EMS noted that the patient has been confused for the last 34 days at [facility]. Her normal baseline the m ental status is usually interactive with meaningful conversation. According to medical record, poison control was contacted. The patient was watched clinically. As she have choking or shortness of breath. Also it is documented that the patient is nonambulatory. Upon seeing the patient today at bedside that she stated that the she doing well. Upon asking what brought her to the hospital she was not aware. She said that that she's been at [facility] for last couple days, since her son had recent surgery. She said that she usually has a caregiver that comes to her house the about 45 times a week and because her. She did state that she has not been walking in for last couple months that since she does not feel unsteady walk-in. She denies any of any focal weakness. She does have distal left lower back pain that radiates the down her left leg proximal to the left knee that has been going on for more than 2 years. She uses a wheelchair. She denies of any neck pain any numbness any tingling. She denies any history of seizures. Upon presentation patient's initial vitals were a blood pressure of 112/61, heart rate of 98, respiratory of 16, temperature of 98.4 Fahrenheit oral and pulse ox of 96 nasal cannula on [address] of the head was reported as cerebral atrophy. Limited exam. No acute intracranial abnormality. Artifacts seen involving both frontal lobe w hich are not well evaluated. I did review the CT of the head and I agree with a study that there is artifact obscuring the bilateral frontal as well as bilateral anterior oral temporal lobe I felt like was a poor quality as well. Otherwise I didn't see any acute ischemia or hemorrhage or any encephalomalacia that was appreciable. Chest x-ray was reported as there is evidence of some congestive heart failure. Pulmonary interstitial fibrosis. EKG was reported as atrial fibrillation with rapid ventricular response. Right bundle branch block. Ventricular rate of 107. On presentation the patient's white blood cell was 26.5 thousand. Her urine analysis: Appeared cloudy, urine nitrates were negative urine leukocyte esterase was large, urine 1 blood cell was more than 182 urine 1 blood cell clumps was many urine bacteria was moderate her UA was suggestive of urinary tract infection. Urine culture was positive for gram-negative bacilli (E. coli). Also during her stay she had a temperature hiatus was 100.8 Fahrenheit oral. Review of Systems Review of system: The 12 point system was reviewed and apparent positive and negative per HPI. Past Medical History Past Medical History: Atrial Fibrillation, Heart Failure, Hypertension, Thyroid Disorder Additional Past Medical History / Comment(s): dyslipidemia. pt unable to anser questions about past medical history at this time. history in paperwork from [facility] History of Any Multi-Drug Resistant Organisms: Unobtainable Past Surgical History: Cardiac Valve Replacement Additional Past Surgical History / Comment(s): mitral valve replacement. Past Anesthesia/Blood Transfusion Reactions: Unable to Obtain Past Psychological History: Unable to Obtain Smoking Status: Former smoker Past Alcohol Use History: None Reported Past Drug Use History: None Reported - Past Family History Mother History Unknown: Yes Medications and Allergies Home Medications Medication Instructions Recorded Confirmed Type Acetaminophen Tab [Tylenol Tab] 1,000 mg PO Q4H PRN 05/24/20 05/24/20 History Acetaminophen-Codeine 300-30mg 1 tab PO TID PRN 05/24/20 05/24/20 History [Tylenol w/codeine #3] Apixaban [Eliquis] 2.5 mg PO BID@899,209905/24/20 05/24/20 History Aspirin 81 mg PO DAILY@89905/24/20 05/24/20 History Atorvastatin [Lipitor] 10 mg PO HS@209905/24/20 05/24/20 History Calcium Carbonate/Vitamin D3 1 tab PO BID@0900,209905/24/20 05/24/20 History [Calcium 600-D3 20Mcg(800 Unit)] Cholecalciferol [Vitamin D3 (25 1,000 unit PO DAILY@89905/24/20 05/24/20 History Mcg = 1000 Iu)] Digoxin [Lanoxin] 125 mcg PO DAILY@59905/24/20 05/24/20 History Docusate [Colace] 100 mg PO BID PRN 05/24/20 05/24/20 History Fish Oil(Unknown Dose) 1 cap PO BID@0900,209905/24/20 05/24/20 History Furosemide [Lasix] 40 mg PO BID@0600,1400 05/24/20 05/24/20 History Glucosamine-Chondr 500-400Mg 1 tab PO BID@0900,209905/24/20 05/24/20 History Iron Polysaccharide Complex 150 mg PO DAILY@169905/24/20 05/24/20 History [Polysaccharide Iron] Isosorbide Mononitrate ER [Imdur] 30 mg PO DAILY@89905/24/20 05/24/20 History Lactobacillus Rhamnosus GG 1 cap PO DAILY@89905/24/20 05/24/20 History [Culturelle] Lactose-Reduced Food [Ensure Plus] 120 ml PO TID@0900,1300,209905/24/20 05/24/20 History Levothyroxine Sodium [Synthroid] 50 mcg PO DAILY@59905/24/20 05/24/20 History Melatonin 5 mg PO HS@209905/24/20 05/24/20 History Metoprolol Tartrate [Lopressor] 50 mg PO BID@0900,209905/24/20 05/24/20 History Multivitamins, Thera [Multivitamin 1 tab PO DAILY@89905/24/20 05/24/20 History (formulary)] Nitroglycerin Sl Tabs [Nitrostat] 0.4 mg SL Q5M PRN 05/24/20 05/24/20 History Potassium Chloride ER [K-Dur 20] 40 meq PO BID@899,209905/24/20 05/24/20 History amLODIPine [Norvasc] 5 mg PO DAILY@89905/24/20 05/24/20 History Allergies Allergy/AdvReac Type Severity Reaction Status Date / Time cefaclor [From [facility]] Allergy Unknown Verified 05/24/20 21:35 Physical Examination - Vital Signs Vital Signs: Vital Signs Temp Pulse Resp BP Pulse Ox 05/27/20 00:24 97.5 F L 59 L 13 118/61 92 L 05/26/20 19:00 98.0 F 82 13 129/65 93 L 05/26/20 16:00 70 05/26/20 13:50 97.5 F L 70 14 111/58 93 L 05/26/20 12:00 97.8 F 54 L 18 116/59 90 L 05/26/20 08:24 97.5 F L 78 18 153/67 91 L Intake and Output 05/26/20 05/27/20 05/27/20 22:59 06:59 14:59 Intake Total 225 100 Output Total 1100 Balance 225 -1000 Intake: Intake, IV Titration 225 Amount Sodium Chloride 0.9% 1, 225 000 ml @ 75 mls/hr IV . [id number] [facility] Rx#:[id number] Oral 100 Output: Urine 1100 Other: Voiding Method Diaper Diaper Incontinent Incontinent # Voids 1 # Bowel Movements 1 GENERAL: The patient is lying in bed and is not in acute distress. CHEST: The heart rate is irregular rate rhythm. No murmurs to auscultation. No carotid bruit bilaterally. LUNG: Clear to auscultation bilaterally no wheezing noted throughout. Not labored breathing. ABDOMEN/GI: Bowel sounds present in all 4 quadrants. No tenderness to palpation throughout. Extremities: Patient seemed to have significant arthritis changes over the hands as well as the feet as well as the fact that was there is a curvature of the spine but had a hard time assessing because of the patient's position. NEUROLOGICAL: Higher mental function: The patient is awake, alert, oriented to self. She stated that she is in the hospital in [facility] but did not know that was [facility]. She was able to tell me that the year was 2019 and that this is the first week of May. Patient is following commands. No aphasia and no neglect. Cranial nerves: The pupils are round, equal and reactive to light and accommodation. Visual myers are full to confrontation throughout. Extraocular movement is intact no nystagmus is noted. Facial sensation is normal to touch throughout. The facial strength is normal throughout. Hearing is normal tessy aterally to hand rub. Tongue is midline and moved [id number] without any difficulty. No dysarthria is noted. Shoulder shrug is normal bilaterally. Motor: Gait is defered. The patient was hunched over on the bed. The strength of bilateral upper extremity was 4+ to 5 minus bilaterally. Lower extremities the strength was at 3-4 proximally and distally bilaterally. Normal tone. Patient had decreased bulk and the bilateral proximal lower extremities. Cerebellum: Normal finger to nose bilaterally. Sensation: Sensation is normal to touch throughout. Reflexes (right/left): Bilateral upper extremity reflexes are 2 positive bilaterally. Lower extremity on the right is 1 positive over the right patella 3 positive over the left patella. The ankles were 0 bilaterally. Plantars are upgoing bilaterally without stimulation. Results On presentation the patient's initial sodium was 132, and yesterday sodium was 134. Initial potassium was 5.6 yesterday sodium was 3.8. AST of 38, ALC of 21. Vitamin B12 is 616, folate is 22.5, TSH of 2.09. Hemoglobin of 9.4 Troponin is 0.052 - Laboratory Findings CBC and BMP: 05/27/20 08:36 05/27/20 08:36 Abnormal Lab Findings: Abnormal Labs 05/24/20 05/24/20 05/24/20 20:29 20:41 20:41 WBC 26.5 H RBC 3.12 L Hgb 9.4 L Hct 29.1 L Neutrophils # (Manual) 24.30 H Lymphocytes # (Manual) 0.80 L Monocytes # (Manual) 1.33 H Sodium Potassium Chloride BUN Glucose POC Glucose (mg/dL) 234 H Iron % Saturation AST Troponin I Urine Appearance Cloudy H Urine Protein 1+ H Urine Blood Small H Ur Leukocyte Esterase Large H Urine WBC >182 H Urine WBC Clumps Many H Urine Bacteria Moderate H 05/24/20 05/24/20 05/25/20 20:41 20:41 06:05 WBC RBC Hgb Hct Neutrophils # (Manual) Lymphocytes # (Manual) Monocytes # (Manual) Sodium 132 L Potassium 5.6 H Chloride 93 L BUN 69 H Glucose 144 H POC Glucose (mg/dL) 112 H Iron % Saturation AST 38 H Troponin I 0.052 H* Urine Appearance Urine Protein Urine Blood Ur Leukocyte Esterase Urine WBC Urine WBC Clumps Urine Bacteria 05/25/20 05/25/20 05/26/20 06:09 06:09 06:06 WBC 28.5 H RBC 3.13 L Hgb 9.3 L Hct 29.3 L Neutrophils # (Manual) Lymphocytes # (Manual) Monocytes # (Manual) Sodium 130 L 134 L Potassium 5.6 H Chloride 91 L 93 L BUN 64 H 57 H Glucose POC Glucose (mg/dL) Iron 11 L % Saturation 4.20 L AST Troponin I Urine Appearance Urine Protein Urine Blood Ur Leukocyte Esterase Urine WBC Urine WBC Clumps Urine Bacteria Assessment and Plan Assessment: Acute Delerium likely due to underlying infection (UTI)---improved. Acute UTI with cystitis Persistent atrial fibrillation, on [place] Chronic congestive heart failure Central hypertension Hypothyroidism Normocytic anemia Hyperkalemia secondary to do potassium replacement Plan: Patient's altered mental status is likely due to her underlying urinary tract infection. She is currently on ceftriaxone. Her mentation seems improved compared to the presentation from what I see from the medical records on presentation. Patient has no focality on exam. Patient does have artifact on bilateral frontal and anterior temporal region. Notified Primary team and he stated to hold off, which I agree since patient has no focality. Vitamin B12 is 616, folate is 22.5, TSH of 2.09. I ordered ammonia level. Regarding the patient's left lower back pain radiating down with the hyperreflexia over the left patellar possibly the patient has spondylolysis or radiculopathy. Patient does have significant osteoarthritis. Consider further workup as an outpatient as in the CT of the lumbar. I attempted to contact the patient's son via phone but no response. I will try contacting them again later today if not more. Regarding patient atrial fibrillation she is on Eliquis, dioxin and metoprolol currently. We'll defer the management to the primary team. Regarding the management of her UTI we'll defer the management as well to the primary team. Recommend patient follow up with a neurologist as outpatient regarding her left lower back pain rating down. Thank you for the consult. Andrea Hernandez M.D. Neuro-hospitalist Time with Patient: Greater than 30
[2020-05-27 13:39] LABS: HCT 35.3 % (34.0-46.0); MCH 29.7 pg (25.0-35.0); MCHC 31.2 g/dL (31.0-37.0); Mean Platelet Volume 8.8; Platelet Count 417 k/uL (150-450); RBC 3.71 m/uL (3.80-5.40); RDW 13.9 % (11.5-15.5); WBC 14.1 k/uL (3.8-10.6)
[2020-05-27 14:05] LABS: African American GFR (CKD) >90 (>60 ml/min/1.73 sqM); Anion Gap 13 mmol/L; Blood Urea Nitrogen 51 mg/dL (7-17); Calcium 8.8 mg/dL (8.4-10.2); Carbon Dioxide 25 mmol/L (22-30); Chloride 96 mmol/L (98-107); Glucose 105 mg/dL (74-99); Non-African American GFR(CKD) 82 (>60 ml/min/1.73 sqM); Potassium 4.1 mmol/L (3.5-5.1); Sodium 134 mmol/L (137-145)
--- NOTE | 2020-05-27 15:23 | P.PN ---
Progress Note - Text Progress Note Date: 05/27/20 Chief Complaint: Change in mental status History of presenting complaint: This is a 89-year-old patient was a resident of [facility] being followed by Dr. Hardy. As per the EMS report patient had been somewhat confused. Staff and found the patient and drinking hand wash mortal and about how.. She had the poutt to her mouth. Poison control was contacted. Patient was watched clinically. No choking or shortness of breath. Patient is brought into the ER. Chronic stable medical conditions include CHF, hypertension, hypothyroid, hyperlipidemia, patient nonambulatory. This morning patient had about 25% of her breakfast. Denies any pain. No shortness of breath. admitted with acute UTI with cystitis, A. fib uncontrolled. Started on IV ceftriaxone. Has gone back into sinus rhythm. Unit of blood culture both growing E. coli. Today-continues to feel well. Tolerating diet. Remains sinus rhythm. Review of systems: Was done for constitutional, cardiovascular, GI, pulmonary. relevant finding as above Active Medications Acetaminophen (Tylenol Tab) 650 mg PO Q6HR PRN PRN Reason: Mild Pain or Fever > 100.5 Last Admin: 05/27/20 08:17 Dose: 650 mg Documented by: Acetaminophen/Codeine Phosphate (Tylenol #3) 1 each PO TID PRN PRN Reason: Pain Last Admin: 05/27/20 02:35 Dose: 1 each Documented by: Amlodipine Besylate (Norvasc) 5 mg PO DAILY@0900 [facility] Last Admin: 05/27/20 08:09 Dose: 5 mg Documented by: Apixaban (Eliquis) 2.5 mg PO BID@899,2099 [facility] Last Admin: 05/27/20 08:09 Dose: 2.5 mg Documented by: Aspirin (Aspirin) 81 mg PO DAILY@0900 [facility] Last Admin: 05/27/20 08:09 Dose: 81 mg Documented by: Atorvastatin Calcium (Lipitor) 10 mg PO HS@2100 [facility] Last Admin: 05/26/20 19:58 Dose: 10 mg Documented by: Digoxin (Lanoxin) 125 mcg PO DAILY@0600 [facility] Last Admin: 05/27/20 05:33 Dose: 125 mcg Documented by: Ceftriaxone Sodium 1 gm/ (Sodium Chloride) 50 mls @ 100 mls/hr IVPB Q24H [facility] Last Admin: 05/26/20 19:58 Dose: 100 mls/hr Documented by: Sodium Chloride (Saline 0.9%) 1,000 mls @ 75 mls/hr IV .[id number] [facility] Last Admin: 05/27/20 09:14 Dose: 75 mls/hr Documented by: Isosorbide Mononitrate (Imdur) 30 mg PO DAILY@0900 [facility] Last Admin: 05/27/20 08:09 Dose: 30 mg Documented by: Levothyroxine Sodium (Synthroid) 50 mcg PO DAILY@0600 [facility] Last Admin: 05/27/20 05:33 Dose: 50 mcg Documented by: Melatonin (Melatonin) 5 mg PO HS@2100 [facility] Last Admin: 05/26/20 19:58 Dose: 5 mg Documented by: Metoprolol Tartrate (Lopressor) 50 mg PO BID@0900,2100 [facility] Last Admin: 05/27/20 08:09 Dose: 50 mg Documented by: Naloxone HCl (Narcan) 0.2 mg IV Q2M PRN PRN Reason: Opioid Reversal Nitroglycerin (Nitrostat) 0.4 mg SUBLINGUAL Q5M PRN PRN Reason: Chest Pain Physical examination: VITAL SIGNS: 97.5, 98, 18, 122/47, 92% on 2 L GENERAL: Sitting up, comfortable, talking , loss of subcutaneous fat and wasting of muscles. EYES: Pupils equal. Conjunctiva normal. NECK: JVD not raised; masses not palpable. HEART: Heart sounds irregular; no edema. LUNGS: Respiratory rate normal; clear to auscultation. ABDOMEN: Soft, nontender, liver spleen not palpable, no masses palpable. PSYCH: able to carry of a simple conversation MUSCULAR skeletal: Evidence of OA, loss of subcutaneous fat, muscle wasting, bony prominences INVESTIGATIONS, reviewed in the clinical context: White count 14.1 hemoglobin 11 potassium 4.1 creatinine 0.62 Previous testing White count 26.5 hemoglobin 9.4 platelets 377 potassium 5.6 sodium 1:30 creatinine 0.95 bun 69 Troponin I 0.052 UA positive for leukoesterase, WBC EKG tracing personally reviewed by me-atrial fibrillation rate of 107, right bundle branch block pattern, ST segment changes Chest x-ray film personally reviewed by me-coronary megaly with venous prominence and interstitial prominence urine and blood culture both grew E. coli iron 11 TIBC 262 ferritin 4.20, B12/folate/TSH all normal Assessment: -Acute UTI with cystitis, POA, with sepsis with urine and blood cultures both positive for E. coli., POA -Persistent atrial fibrillation, rate uncontrolled chronically on eliquis-now sinus rhythm -Primary osteoarthritis -Moderate cognitive impairment possibly from late-onset exam his dementia -Acute delirium on presentation likely from infection-corrected -Chronic congestive heart failure EF not known -Essential hypertension -Hypothyroidism, rule out over replacement -History of mitral valve replacement -Normocytic anemia -iron deficient -Hyperkalemia seconded to potassium replacement -Clinical dehydration -Troponin leak due to hemodynamic mismatch. No clinical evidence of acute coronary syndrome Plan: On ceftriaxone. Getting IV Ferrlecit. Other medications to continue. May return to [facility] in next 24-48 hours. Repeat labs.
[2020-05-27] MEDS: MELATONIN 5 MG TABLET PO SCH (19:50)
[2020-05-27] MEDS: ATORVASTATIN 10 MG TAB PO SCH (19:51)
[2020-05-28] MEDS: SODIUM CHLORIDE 0.9% 1,000 ML IV SCH ×3 (01:19→12:35)
[2020-05-28] MEDS: DIGOXIN 125 MCG TAB PO SCH (06:02)
[2020-05-28] MEDS: LEVOTHYROXINE 50 MCG TAB PO SCH (06:02)
[2020-05-28] MEDS: METOPROLOL TARTRATE 50 MG TAB PO SCH (09:23)
[2020-05-28] MEDS: ASPIRIN 81 MG PO SCH (09:24)
[2020-05-28] MEDS: ISOSORBIDE MONONITRATE ER 30 MG TAB.ER.24H PO SCH (09:24)
[2020-05-28] MEDS: APIXABAN 2.5 MG TABLET PO SCH (09:24)
[2020-05-28] MEDS: amLODIPine 5 MG TAB PO SCH (09:24)
[2020-05-28 09:25] LABS: HCT 31.2 % (34.0-46.0); HGB 9.7 gm/dL (11.4-16.0); MCH 29.4 pg (25.0-35.0); MCV 95.1 fL (80.0-100.0); Mean Platelet Volume 7.5; Platelet Count 398 k/uL (150-450); RBC 3.28 m/uL (3.80-5.40); RDW 14.1 % (11.5-15.5); WBC 12.6 k/uL (3.8-10.6)
[2020-05-28 09:35] LABS: African American GFR (CKD) >90 (>60 ml/min/1.73 sqM); Anion Gap 10 mmol/L; Blood Urea Nitrogen 37 mg/dL (7-17); Calcium 8.6 mg/dL (8.4-10.2); Carbon Dioxide 25 mmol/L (22-30); Chloride 100 mmol/L (98-107); Glucose 157 mg/dL (74-99); Non-African American GFR(CKD) 86 (>60 ml/min/1.73 sqM); Potassium 4.5 mmol/L (3.5-5.1); Sodium 135 mmol/L (137-145)
--- NOTE | 2020-05-28 12:51 | P.DS ---
Providers Date of admission: 05/26/20 08:02 Attending physician: Willie Santos Consults: 05/24/20 21:48 Consult Physician Routine Consulting Provider: Andrea Hernandez Consult Reason/Comments: ams Do you want consulting provider notified?: Yes Primary care physician: Suresh Hardy [facility] Course: 89-year-old patient was a resident of [facility] being followed by Dr. Hardy. As per the EMS report patient had been somewhat confused. Staff and found the patient and drinking hand wash mortal and about how.. She had the poutt to her mouth. Poison control was contacted. Patient was watched clinically. No choking or shortness of breath. Patient is brought into the ER. Chronic stable medical conditions include CHF, hypertension, hypothyroid, hyperlipidemia, patient nonambulatory. This morning patient had about 25% of her breakfast. Denies any pain. No shortness of breath. admitted with acute UTI with cystitis, A. fib uncontrolled. Started on IV ceftriaxone. Has gone back into sinus rhythm. Unit of blood culture both growing E. coli. Today-continues to feel well. Tolerating diet. Remains sinus rhythm. 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 Patient does have history of atrial fibrillation on anticoagulation with Eliquis. Patient is on digoxin as well. Patient was treated for urinary tract infection patient has a Rogers catheter that was put in here patient will need a voiding trial which can be done at rehabilitation. Patient has pansensitive E. coli in the blood in the urine patient didn't have any fever although unfortunately I do not have any repeat blood cultures. Patient will be discharged today on the Ceftin for 10 more days completing 10 day of therapy. Patient has significant regurgitant murmur in mitral area and I aortic area and patient had a history of mitral valve replacement in the past. Patient is a poor candidate for any intervention although will be referred to cardiology as an outpatient. Considering her age and dementia probably fluoroquinolones is not a good idea. Patient is dehydrated on admission because of which am discontinuing Lasix. Patient clinically is euvolemic but candidate going to pulmonary edema because of her valvular abnormalities at that time patient can be started on Lasix if needed and patient need to be evaluated as an outpatient for need of Lasix PHYSICAL EXAMINATION: GENERAL: The patient is alert and oriented x1-2, not in any acute distress. Thin built HEENT: Pupils are round and equally reacting to light. EOMI. No scleral icterus. No conjunctival pallor. Normocephalic, atraumatic. No pharyngeal erythema. No thyromegaly. CARDIOVASCULAR: S1 and S2 present. No rubs, or gallops. Murmurs as mentioned above PULMONARY: Chest is clear to auscultation, no wheezing or crackles. ABDOMEN: Soft, nontender, nondistended, normoactive bowel sounds. No palpable organomegaly. MUSCULOSKELETAL: No joint swelling or deformity. EXTREMITIES: No cyanosis, clubbing, or pedal edema. NEUROLOGICAL: Gross neurological examination did not reveal any new focal deficits. Does follow commands SKIN: No rashes. Assessment: -Acute UTI with cystitis, POA, with sepsis -Persistent atrial fibrillation, rate uncontrolled chronically on eliquis-now sinus rhythm -Primary osteoarthritis -Moderate cognitive impairment possibly from late-onset exam his dementia -Acute delirium on presentation likely from infection-corrected -History of mitral valve replacement, possible mitral and aortic regurgitation -Essential hypertension -Hypothyroidism, rule out over replacement -History of mitral valve replacement -Normocytic anemia -iron deficient -Hyperkalemia seconded to potassium replacement -Clinical dehydration -Troponin leak due to hemodynamic mismatch. No clinical evidence of acute coronary syndrome Patient Condition at Discharge: Fair Plan - Discharge Summary Discharge Rx Participant: No New Discharge Prescriptions: New Cefuroxime Axetil [Ceftin] 500 mg PO BID 10 Days #20 tab Continue Fish Oil(Unknown Dose) 1 cap PO BID@0900,2100 Acetaminophen Tab [Tylenol] 1,000 mg PO Q4H PRN PRN Reason: Pain amLODIPine [Norvasc] 5 mg PO DAILY@0900 Apixaban [Eliquis] 2.5 mg PO BID@0900,2100 Aspirin 81 mg PO DAILY@0900 Atorvastatin [Lipitor] 10 mg PO HS@2100 Calcium Carbonate/Vitamin D3 [Calcium 600-D3 20Mcg(800 Unit)] 1 tab PO BID@0900,2100 Cholecalciferol [Vitamin D3 (25 Mcg = 1000 Iu)] 1,000 unit PO DAILY@0900 Digoxin [Lanoxin] 125 mcg PO DAILY@0600 Docusate [Colace] 100 mg PO BID PRN PRN Reason: Constipation Glucosamine-Chondr 500-400Mg 1 tab PO BID@0900,2100 Iron Polysaccharide Complex [Polysaccharide Iron] 150 mg PO DAILY@1700 Isosorbide Mononitrate ER [Imdur] 30 mg PO DAILY@0900 Lactobacillus Rhamnosus GG [Culturelle] 1 cap PO DAILY@0900 Lactose-Reduced Food [Ensure Plus] 120 ml PO TID@0900,1300,2100 Levothyroxine Sodium [Synthroid] 50 mcg PO DAILY@0600 Melatonin 5 mg PO HS@2099 Metoprolol Tartrate [Lopressor] 50 mg PO BID@0900,2100 Multivitamins, Thera [Multivitamin (formulary)] 1 tab PO DAILY@0900 Nitroglycerin Sl Tabs [Nitrostat] 0.4 mg SL Q5M PRN PRN Reason: Chest Pain Discontinued Acetaminophen-Codeine 300-30mg [Tylenol w/codeine #3] 1 tab PO TID PRN PRN Reason: Pain Furosemide [Lasix] 40 mg PO BID@0600,1400 Potassium Chloride ER [K-Dur 20] 40 meq PO BID@0900,2099 Discharge Medication List Acetaminophen Tab [Tylenol] 1,000 mg PO Q4H PRN 05/24/20 [History] Apixaban [Eliquis] 2.5 mg PO BID@0900,209905/24/20 [History] Aspirin 81 mg PO DAILY@89905/24/20 [History] Atorvastatin [Lipitor] 10 mg PO HS@209905/24/20 [History] Calcium Carbonate/Vitamin D3 [Calcium 600-D3 20Mcg(800 Unit)] 1 tab PO BID@0900,209905/24/20 [History] Cholecalciferol [Vitamin D3 (25 Mcg = 1000 Iu)] 1,000 unit PO DAILY@0905/24/20 [History] Digoxin [Lanoxin] 125 mcg PO DAILY@0600 05/24/20 [History] Docusate [Colace] 100 mg PO BID PRN 05/24/20 [History] Fish Oil(Unknown Dose) 1 cap PO BID@0900,209905/24/20 [History] Glucosamine-Chondr 500-400Mg 1 tab PO BID@0900,209905/24/20 [History] Iron Polysaccharide Complex [Polysaccharide Iron] 150 mg PO DAILY@1700 05/24/20 [History] Isosorbide Mononitrate ER [Imdur] 30 mg PO DAILY@89905/24/20 [History] Lactobacillus Rhamnosus GG [Culturelle] 1 cap PO DAILY@89905/24/20 [History] Lactose-Reduced Food [Ensure Plus] 120 ml PO TID@0900,1300,209905/24/20 [History] Levothyroxine Sodium [Synthroid] 50 mcg PO DAILY@59905/24/20 [History] Melatonin 5 mg PO HS@209905/24/20 [History] Metoprolol Tartrate [Lopressor] 50 mg PO BID@899,209905/24/20 [History] Multivitamins, Thera [Multivitamin (formulary)] 1 tab PO DAILY@89905/24/20 [History] Nitroglycerin Sl Tabs [Nitrostat] 0.4 mg SL Q5M PRN 05/24/20 [History] amLODIPine [Norvasc] 5 mg PO DAILY@89905/24/20 [History] Cefuroxime Axetil [Ceftin] 500 mg PO BID 10 Days #20 tab 05/28/20 [Rx] Follow up Appointment(s)/Referral(s): Suresh Hardy MD [Primary Care Provider] - 1-2 Days Ludwin Levy MD [STAFF PHYSICIAN] - 1 Week Activity/Diet/Wound Care/Special Instructions: Patient had rogers catheter placed on 05/27/20 for retention. On 05/29/20 remove rogers catheter and do voiding trial with bladder scan to ensure she is emptying bladder sufficiently. Discharge Disposition: TRANSFER TO SNF/ECF
--- NOTE | 2020-05-28 12:56 | CDI ---
Documentation Clarification Form Date: 05/28/2020 CDS: Suzie Valerio CCS, CCDS Admit Date: 05/26/2020 Patient Name: Antoinette Leone Discharge Date: ATTENTION: The Clinical Documentation Specialists (CDI) and [facility] Coding Staff appreciate your assistance in clarifying documentation. Please respond to the clarification below the line at the bottom and electronically sign. The CDI & [facility] Coding staff will review the response and follow-up if needed. Please note: Queries are made part of the Legal Health Record. If you have any questions, please contact the author of this message via ITS. Dear Dr. Willie Santos: Per the documented bed scale BMI: 11.9. Per the nutritional assessment, BMI is 17.6. Per the History & Physical: "BMI 70.7, sitting up, loss of subcutaneous fat and wasting of muscles." History/Risk Factors: DNR, bed confined, CHF, EF unknown; Hypertension, Dysphasia, Hypothyroidism, Hyperlipidemia, Atrial Fibrillation on group home anticoagulant, Heart Valve replacement. Former smoker. 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 Admitted with a UTI & altered mental status changes. Labs: total Protein 7.4, Albumin 3.5. Current BMI: 11.9 Weight 45.359 kg. Height: 5 ft 3 in. BMI: 17.6. 87% of ideal body weight. Treatment: IV Rocephin, IV fluids, Home dose po Lasix, Stopped K supplementation. Nutritional Assessment: Diet intake: 25% - 50%. Poor nutritional intake, Difficult swallowing. Underweight. Supplements: Ensure Enlive TID In your professional opinion, can you please clarify if these findings signify one of the following conditions? Mild Protein-Calorie Malnutrition Moderate Protein-Calorie Malnutrition Severe Protein-Calorie Malnutrition Other condition, please specify Unable to determine (Last Revision: March 2019) Moderate protein calorie malnutrition MTDD
[2020-05-28 15:52] VITALS: BP 151/69; PULSE 82; RESP 18; TEMP 97.6
== END 2020-05-28 15:32 | DRG 872 ==
LOC: EC 20:14 → 3SCARD 22:37 → OBSVTOIN 05-26 08:02 → 4SSUR 05-26 15:50
PROVIDERS: ADMIT Hospitalist; ATTEND Hospitalist
DX: A41.9 Sepsis, unspecified organism (principal); F05 Delirium due to known physiological condition; I48.19 Other persistent atrial fibrillation; E44.0 Moderate protein-calorie malnutrition; E78.5 Hyperlipidemia, unspecified; E03.9 Hypothyroidism, unspecified; E87.5 Hyperkalemia; J84.10 Pulmonary fibrosis, unspecified; N30.91 Cystitis, unspecified with hematuria; I45.10 Unspecified right bundle-branch block; I11.0 Hypertensive heart disease with heart failure; I50.9 Heart failure, unspecified; F01.50 Vascular dementia, unspecified severity, without behavioral disturbance, psychotic disturbance, mood disturbance, and anxiety; E86.0 Dehydration; Z66 Do not resuscitate; M19.91 Primary osteoarthritis, unspecified site; D50.9 Iron deficiency anemia, unspecified; B96.20 Unspecified Escherichia coli [E. coli] as the cause of diseases classified elsewhere; E87.6 Hypokalemia; R47.02 Dysphasia; Z79.890 Hormone replacement therapy; Z79.01 Long term (current) use of anticoagulants; Z79.82 Long term (current) use of aspirin; Z79.899 Other long term (current) drug therapy; Z88.1 Allergy status to other antibiotic agents; Z95.2 Presence of prosthetic heart valve; Z87.891 Personal history of nicotine dependence; Z74.01 Bed confinement status
CPT/HCPCS: 36415; 70450; 71045; 80048; 80053; 81001; 82140; 82607; 82728; 82746; 83540; 83550; 83605; 83735; 83930; 84443; 84484; 85025; 85027; 85610; 85730; 87040; 87077; 87086; 87186; 93005; 96374; 99285